=== PATIENT | female | born 1990 | race Caucasian/White ===

== ENCOUNTER 2017-05-30 21:08 | Emergency (ER) | payer MEDICAID ==
[~2017-05-30] VITALS: Ht 154.9 cm; Wt 77.0 kg
[2017-05-30 21:54] VITALS: BP 134/69
== END 2017-05-31 01:48 | disposition left against medical advice (07) ==
LOC: ER 21:08
DX: M54.9 Dorsalgia, unspecified (principal); Z53.21 Procedure and treatment not carried out due to patient leaving prior to being seen by health care provider